=== PATIENT | female | born 2000 | race Caucasian/White ===

== ENCOUNTER 2019-01-02 10:15 | Emergency (ER) | payer OTHER ==
[~2019-01-02] VITALS: Ht 180.3 cm; Wt 136.3 kg
[2019-01-02 10:41] VITALS: BP 150/99
[2019-01-02] MEDS ORDERED: DIPH,PERTUSS(ACELL),TET VAC/PF 0.5 ML IM-VACC ONE ×2 (10:54→11:00)
[2019-01-02] MEDS ORDERED: BACITRACIN ZINC OINT 500U/GM, 0.9 GM ONE (11:12)
--- NOTE | 2019-01-02 11:33 | NUR ---
Patient/Caregiver given discharge instructions and they have confirmed that they understand the instructions. Patient ambulatory with steady gait. PT LEFT WITH ALL PERSONAL BELONGINGS. PT LEFT WITH FRIEND
== END 2019-01-02 11:35 | disposition home or self-care (01) ==
LOC: ED 11:27
DX: S91.331A Puncture wound without foreign body, right foot, initial encounter (principal); I10 Essential (primary) hypertension; X58.XXXA Exposure to other specified factors, initial encounter; Y93.89 Activity, other specified; Y92.009 Unspecified place in unspecified non-institutional (private) residence as the place of occurrence of the external cause; Y99.8 Other external cause status
CPT/HCPCS: 90471; 90715

== ENCOUNTER 2019-10-29 18:30 | Emergency (ER) | payer OTHER ==
[~2019-10-29] VITALS: Ht 177.8 cm; Wt 133.3 kg
[2019-10-29 18:48] VITALS: BP 182/132
[2019-10-29] MEDS ORDERED: DEXAMETHASONE 4 MG TABLET ONE (19:07)
--- NOTE | 2019-10-29 19:10 | NUR ---
MEDS ADMIN PER NOV.
[2019-10-29] MEDS ORDERED: DEXAMETHASONE 4 MG TABLET PO ONE (19:30)
== END 2019-10-29 19:16 | disposition home or self-care (01) ==
LOC: ED 19:00
DX: J02.0 Streptococcal pharyngitis (principal); M79.10 Myalgia, unspecified site
CPT/HCPCS: 93005; 99283

== ENCOUNTER 2020-02-17 15:32 | Emergency (ER) | payer OTHER ==
[~2020-02-17] VITALS: Ht 154.9 cm; Wt 134.0 kg
[2020-02-17 15:34] VITALS: BP 172/101
[2020-02-17] MEDS ORDERED: IBUP-1223 PO (16:02)
[2020-02-17] MEDS ORDERED: IBUPROFEN 800 MG TABLET ONE ×2 (16:07→16:10)
[2020-02-17] MEDS ORDERED: IBUPROFEN 800 MG TABLET PO ONE (16:30)
--- NOTE | 2020-02-17 16:37 | NUR ---
Patient/Cagiven discharge instructions and they have confirmed that they understand the instructions. Patient ambulatory with steady gait.
== END 2020-02-17 16:38 | disposition home or self-care (01) ==
LOC: ED 15:56
DX: S39.012A Strain of muscle, fascia and tendon of lower back, initial encounter (principal); I10 Essential (primary) hypertension; X58.XXXA Exposure to other specified factors, initial encounter; Y93.89 Activity, other specified; Y92.89 Other specified places as the place of occurrence of the external cause; Y99.8 Other external cause status
CPT/HCPCS: 99283

== ENCOUNTER 2020-05-13 11:35 | Emergency (ER) | payer OTHER ==
[~2020-05-13] VITALS: Ht 180.3 cm; Wt 130.9 kg
[~2020-05-13 11:35] MED LIST: IBUP-1223 PO
--- NOTE | 2020-05-13 13:15 | NUR ---
apparatus operator note: Pt to room from lobby.
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
--- NOTE | 2020-05-13 13:33 | NUR ---
PT STATES DX WITH HTN LAST YEAR, NEEDS TO FOLLOW UP WITH A PRIMARY CARE PROVIDER, HAS NOT DONE SO. CURRENTLY NOT TAKING ANY MEDICATIONS. PT PROVIDED WITH ICE PACK FOR RIGHT ANKLE PAIN AND SWELLING.
--- NOTE | 2020-05-13 14:05 | NUR ---
DR BUNCH AT BEDSIDE TO JUAN PT
[2020-05-13 14:38] VITALS: BP 164/81
--- NOTE | 2020-05-13 14:46 | NUR ---
VINEYARDIST AT BEDSIDE FOR RIGHT ANKLE XRAY
--- NOTE | 2020-05-13 14:56 | NUR ---
PT TO RADIOLOGY VIA [facility]
== END 2020-05-13 15:30 | disposition home or self-care (01) ==
LOC: ED 15:20
DX: S93.491A Sprain of other ligament of right ankle, initial encounter (principal); I10 Essential (primary) hypertension; E78.00 Pure hypercholesterolemia, unspecified; W01.0XXA Fall on same level from slipping, tripping and stumbling without subsequent striking against object, initial encounter; Y93.01 Activity, walking, marching and hiking; Y92.488 Other paved roadways as the place of occurrence of the external cause; Y99.8 Other external cause status
CPT/HCPCS: 99283

== ENCOUNTER 2021-03-06 16:14 | Emergency (ER) | payer OTHER ==
[~2021-03-06] VITALS: Ht 180.3 cm; Wt 132.0 kg
[2021-03-06 16:50] LABS: BASOPHILS % (AUTO) 1 % (0-1); EOSINOPHILS % (AUTO) 1 % (1-7); LYMPHOCYTES % (AUTO) 27 % (22-44); MEAN CORPUSCULAR HEMOGLOBIN 28.3 pg (27.0-34.8); MEAN CORPUSCULAR HGB CONC 32.6 g/dL (32.4-35.8); MEAN PLATELET VOLUME 8.6 fL (7.4-10.4); MONOCYTES % (AUTO) 8 % (2-9); NEUTROPHILS % (AUTO) 63 % (42-75); PLATELET COUNT 239 x10^3/uL (130-400); RED BLOOD COUNT 4.46 x10^6/uL (3.82-5.3)
[2021-03-06 16:59] LABS: ALBUMIN 3.3 g/dL (3.4-5.0); ANION GAP 3 mmol/L (5-15); CHLORIDE 108 mmol/L (98-107); CREATININE 0.67 mg/dL (0.55-1.02)
--- NOTE | 2021-03-06 17:12 | NUR ---
CONTACT LENS LATHE OPERATOR; PT TO ROOM FROM [facility]
--- NOTE | 2021-03-06 17:25 | NUR ---
PIV PLACED. PT GOING TO MRI.
[2021-03-06] MEDS ORDERED: GADOTERATE 7.5 MMOL/15ML SYR ONE (18:29)
--- NOTE | 2021-03-06 19:32 | NUR ---
PT BACK FROM MRI. ERMD NOTIFIED OF RETURN.
[2021-03-06] MEDS ORDERED: KETOROLAC 30 MG/1 ML IVPush ONE (20:00)
[2021-03-06] MEDS ORDERED: KETOROLAC 30 MG/1 ML ONE (20:18)
--- NOTE | 2021-03-06 20:23 | NUR ---
ALL RESULTS ARE BACK AT THIS TIME. CHART UP FOR RECHECK.
--- NOTE | 2021-03-06 20:52 | NUR ---
MAIKOLD TO CONSULT WITH NEUROSURG
[2021-03-06 22:14] VITALS: BP 148/86
== END 2021-03-06 22:16 | disposition home or self-care (01) ==
LOC: ED 20:26
DX: R55 Syncope and collapse (principal); G93.5 Compression of brain; R51.9 Headache, unspecified; R07.9 Chest pain, unspecified; R94.31 Abnormal electrocardiogram [ECG] [EKG]; I10 Essential (primary) hypertension; E78.00 Pure hypercholesterolemia, unspecified; Z91.14 Patient's other noncompliance with medication regimen
CPT/HCPCS: 36415; 70450; 71045; 72156; 72157; 80048; 82040; 84703; 85025; 93005; 96374; 99285; A9575; J1885

== ENCOUNTER 2021-03-21 07:25 | Outpatient (CLI) | payer OTHER ==
[2021-03-21 08:28] LABS: BASOPHILS % (AUTO) 1 % (0-1); EOSINOPHILS % (AUTO) 1 % (1-7); LYMPHOCYTES % (AUTO) 39 % (22-44); MEAN CORPUSCULAR HEMOGLOBIN 28.2 pg (27.0-34.8); MEAN CORPUSCULAR HGB CONC 32.6 g/dL (32.4-35.8); MEAN PLATELET VOLUME 8.5 fL (7.4-10.4); MONOCYTES % (AUTO) 13 % (2-9); NEUTROPHILS % (AUTO) 46 % (42-75); PLATELET COUNT 274 x10^3/uL (130-400); RED CELL DISTRIBUTION WIDTH 14.9 % (9.6-15.2)
[2021-03-21 08:32] LABS: ALANINE AMINOTRANSFERASE 57 U/L (12-78); ALBUMIN 3.4 g/dL (3.4-5.0); ANION GAP 3 mmol/L (5-15); CALCIUM 9.2 mg/dL (8.5-10.1); CHLORIDE 104 mmol/L (98-107); CREATININE 0.53 mg/dL (0.55-1.02)
[2021-03-21 08:33] LABS: INTERNATIONAL NORMALIZED RATIO 0.96 (0.93-1.1); PROTHROMBIN TIME 10.3 Seconds (9.6-11.5)
[2021-03-21 08:36] LABS: ALKALINE PHOSPHATASE 93 U/L (45-117); BILIRUBIN,TOTAL 0.2 mg/dL (0.2-1.0); TOTAL PROTEIN 8.1 g/dL (6.4-8.2)
[2021-03-21] MEDS ORDERED: CYCL10TA2 PO (13:53)
== END 2021-03-21 23:59 | disposition home or self-care (01) ==
LOC: STAR 07:25
PROVIDERS: ATTEND Neurological Surgery
DX: Z01.812 Encounter for preprocedural laboratory examination (principal); Z20.822 Contact with and (suspected) exposure to COVID-19
CPT/HCPCS: 36415; 71046; 80053; 84703; 85025; 85610; 85730; U0003; U0005

== ENCOUNTER 2021-03-27 05:29 | Inpatient (IN) | payer OTHER ==
[~2021-03-27] VITALS: Ht 180.3 cm; Wt 128.4 kg
[~2021-03-27 05:29] MED LIST changes: +CYCL10TA2 PO
[2021-03-27 06:20] VITALS: BP 168/104
[2021-03-27] MEDS ORDERED: LACTATED RINGERS 1,000 ML IV SCH (06:30)
[2021-03-27] MEDS ORDERED: CHLORHEXIDINE 15 ML UDC PO ONE (06:30)
[2021-03-27 06:44] LABS: HCG UR SG 1.025 (1.003-1.030)
[2021-03-27] MEDS ORDERED: GENTAMICIN 80 MG/2 ML ONE (06:48)
[2021-03-27] MEDS ORDERED: BUPIVACAINE/PF 0.5% ONE (06:48)
[2021-03-27] MEDS ORDERED: VANCOMYCIN 1,000 MG ONE (06:49)
[2021-03-27] MEDS ORDERED: THROMBIN 20,000 UNIT VIAL TP ONE (06:49)
[2021-03-27] MEDS ORDERED: EPINEPHRINE 1 MG/ML, 1ML ONE (06:49)
[2021-03-27] MEDS ORDERED: REMIFENTANIL 2 MG ONE (06:52)
[2021-03-27] MEDS ORDERED: MIDAZOLAM 1 MG/ML, 2ML ONE (06:58)
[2021-03-27] MEDS ORDERED: FENTANYL PF 250 MCG/5ML ONE (06:59)
[2021-03-27] MEDS ORDERED: PROPOFOL 50 ML ONE ×3 (07:03→08:44)
[2021-03-27] MEDS ORDERED: HYDROmorphone 2MG TABLET PO PRN (07:30)
[2021-03-27] MEDS ORDERED: DIPHENHYDRAMINE 50 MG CAPSULE PO PRN (07:30)
[2021-03-27] MEDS ORDERED: HYDROcodone/APAP 10/325 MG TABLET PO PRN (07:30)
[2021-03-27] MEDS ORDERED: HYDROcodone/APAP 5/325 TABLET PO PRN (07:30)
[2021-03-27] MEDS ORDERED: PHARMACY MAY ADJ FOR RENAL FX MC PRN (07:30)
[2021-03-27] MEDS ORDERED: DIPHENHYDRAMINE 50 MG/ML, 1ML IM PRN (07:30)
[2021-03-27] MEDS ORDERED: MAGNESIUM HYDROXIDE 8%, 30ML UDC PO PRN ×2 (07:30→12:30)
[2021-03-27] MEDS ORDERED: DIPHENHYDRAMINE 50 MG/ML, 1ML IVPush PRN (07:30)
[2021-03-27] MEDS ORDERED: ONDANSETRON 2MG/ML, 2ML IVPush PRN ×2 (07:30→09:30)
[2021-03-27] MEDS ORDERED: PROMETHAZINE 25 MG/ML, 1ML IM PRN (07:30)
[2021-03-27] MEDS ORDERED: BISACODYL 10 MG SUPP PR PRN ×2 (07:30→12:30)
[2021-03-27] MEDS ORDERED: SENNA/DOCUSATE TABLET PO PRN (07:30)
[2021-03-27] MEDS ORDERED: METHOCARBAMOL 750 MG TABLET PO PRN (07:30)
[2021-03-27] MEDS ORDERED: DEXAMETHASONE 4 MG/ML, 1ML ONE (07:35)
[2021-03-27] MEDS ORDERED: SUCCINYLCHOLINE 20 MG/ML, 10ML ONE (07:35)
[2021-03-27] MEDS ORDERED: ROCURONIUM 10 MG/ML,10ML ONE (07:35)
[2021-03-27] MEDS ORDERED: CEFAZOLIN 1,000 MG ONE (07:35)
[2021-03-27] MEDS ORDERED: ONDANSETRON 2MG/ML, 2ML ONE (07:35)
[2021-03-27] MEDS ORDERED: ACETAMINOPHEN 325 MG TABLET PO PRN ×3 (09:30→12:30)
[2021-03-27] MEDS ORDERED: METOCLOPRAMIDE 5 MG/ML, 2ML IVPush PRN (09:30)
[2021-03-27] MEDS ORDERED: METHOCARBAMOL 1,000 MG in DEXTROSE 5% 100 ML IV PRN (09:30)
[2021-03-27] MEDS ORDERED: PROMETHAZINE 25 MG/ML, 1ML IVPush PRN (09:30)
[2021-03-27] MEDS ORDERED: EPHEDRINE 50 MG/ML, 1ML IVPush PRN (09:30)
[2021-03-27] MEDS ORDERED: MEPERIDINE/PF 25MG/0.5ML IVPush PRN (09:30)
[2021-03-27] MEDS ORDERED: OXYcodone 5 MG/5 ML ORAL.SOL UDC PO PRN (09:30)
[2021-03-27] MEDS ORDERED: hydrALAzine 20 MG/ML, 1ML IV PRN (09:30)
[2021-03-27] MEDS ORDERED: LABETALOL 5MG/ML, 20ML IV PRN (09:30)
[2021-03-27] MEDS ORDERED: MIDAZOLAM 1 MG/ML, 2ML IV PRN (09:30)
[2021-03-27] MEDS ORDERED: EPHEDRINE 50 MG/ML, 1ML IM PRN (09:30)
[2021-03-27] MEDS ORDERED: MUPIROCIN OINT 2%, 22GM ONE (09:53)
[2021-03-27] MEDS ORDERED: FENTANYL PF 100 MCG/2ML ONE (10:13)
[2021-03-27] MEDS ORDERED: LORazepam 2 MG/ML, 1ML ONE (10:14)
[2021-03-27] MEDS: FENTANYL PF 100 MCG/2ML IV PRN ×2 (10:17→10:26)
[2021-03-27] MEDS: LORazepam 2 MG/ML, 1ML IVPush PRN ×3 (10:19→15:44)
[2021-03-27] MEDS ORDERED: hydrALAzine 20 MG/ML, 1ML ONE (10:34)
[2021-03-27] MEDS ORDERED: HYDROmorphone 1 MG/ML, 1ML INJ ONE ×2 (10:35→11:03)
[2021-03-27] MEDS: HYDROmorphone 1 MG/ML, 1ML INJ IVPush PRN ×6 (10:39→13:39)
[2021-03-27] MEDS ORDERED: HYDROmorphone 2 MG/ML, 1ML IV PRN (12:30)
[2021-03-27] MEDS ORDERED: ACETAMINOPHEN 650 MG SUPP PR PRN ×2 (12:30)
[2021-03-27] MEDS: NS + 20MEQ KCL 1,000 ML IV SCH ×2 (13:08→22:34)
[2021-03-27] MEDS: DEXAMETHASONE 4 MG/ML, 1ML IVPush SCH ×2 (13:39→20:19)
[2021-03-27] MEDS ORDERED: CEFAZOLIN PMX 1GM/50ML 50 ML IVPB SCH (15:30)
[2021-03-27] MEDS: CEFAZOLIN PMX 2GM/50ML 50 ML IVPB SCH (15:34)
[2021-03-27] MEDS: OXYcodone/APAP 5/325MG TABLET PO PRN ×2 (20:19→21:29)
[2021-03-27] MEDS: ENOXAPARIN 30 MG/0.3 ML SQ SCH (22:34)
[2021-03-28] MEDS: CEFAZOLIN PMX 2GM/50ML 50 ML IVPB SCH ×2 (00:04→09:04)
[2021-03-28] MEDS: DEXAMETHASONE 4 MG/ML, 1ML IVPush SCH ×2 (02:57→09:33)
[2021-03-28] MEDS: OXYcodone/APAP 5/325MG TABLET PO PRN ×2 (03:01→09:34)
[2021-03-28] MEDS: NS + 20MEQ KCL 1,000 ML IV SCH (07:00)
[2021-03-28] MEDS ORDERED: SENNA/DOCUSATE TABLET PO SCH (09:00)
[2021-03-28] MEDS: ENOXAPARIN 30 MG/0.3 ML SQ SCH (09:34)
[2021-03-28] MEDS ORDERED: METH-640 PO (09:48)
[2021-03-28] MEDS ORDERED: METH4TAB2 PO (09:48)
[2021-03-28] MEDS ORDERED: CEPH500T PO (09:48)
[2021-03-28] MEDS ORDERED: HYDR-3248 PO (09:48)
== END 2021-03-28 10:47 | disposition home or self-care (01) | DRG 27 ==
LOC: ORIP 05:29 → CCU 11:34
PROVIDERS: ADMIT Neurological Surgery; ATTEND Neurological Surgery
PROC: 00N00ZZ Release Brain, Open Approach (ICD-10-PCS; 2021-03-27)
PROC: 01N10ZZ Release Cervical Nerve, Open Approach (ICD-10-PCS; 2021-03-27)
PROC: 00U20KZ Supplement Dura Mater with Nonautologous Tissue Substitute, Open Approach (ICD-10-PCS; principal; 2021-03-27 07:30)
DX: G93.5 Compression of brain (principal); Z72.89 Other problems related to lifestyle
CPT/HCPCS: 36415; S0020; 81025; 86850; 86900; 87081; 95938; 95941; C1713; G0378; J0171; J0690; J1100; J1170; J1650; J2250; J2405; J2550; J2704; J3010; J3370; J3480; C1765; C1781; J0330; J0360; J1580; J2060; J7120